=== PATIENT | female | born 1980 | race Caucasian/White ===

== ENCOUNTER 2022-09-18 07:34 | Outpatient (CLI) | payer BC | END 2022-09-18 07:35 | disposition home or self-care (01) | LOC: BICULT 07:34 | PROVIDERS: ATTEND Nurse Practitioner Family | DX: N63.10 Unspecified lump in the right breast, unspecified quadrant (principal) ==

== ENCOUNTER 2025-07-28 05:56 | Day surgery (SDC) | payer BC ==
[2025-07-24 09:03] VITALS: BMI 28.3
[2025-07-28] MEDS ORDERED: Bacitracin Zinc Ointment 30 gm TUBE ONE (06:21)
[2025-07-28] MEDS ORDERED: PROPOFOL 20 ML ONE (06:51)
[2025-07-28] MEDS ORDERED: Rocuronium Bromide 10 MG/ML (10ML VIAL) ONE (06:51)
[2025-07-28] MEDS ORDERED: Ondansetron PF 4 MG/2 ML Vial ONE (06:51)
[2025-07-28] MEDS ORDERED: fentaNYL PF 100 MCG/2 ML SYRINGE ONE (06:51)
[2025-07-28] MEDS ORDERED: Lidocaine 1% PF 5 ML VIAL ONE (06:51)
[2025-07-28] MEDS ORDERED: CEFAZOLIN 2 GM VIAL ONE (06:58)
[2025-07-28] MEDS ORDERED: PHENYLEPHRINE-NS 100 MCG/ML 10 ML SYRINGE ONE (07:21)
[2025-07-28] MEDS ORDERED: Ketorolac Tromethamine 30 MG (1 mL) VIAL ONE (07:47)
[2025-07-28] MEDS ORDERED: HYDROcodone/Acetaminophen 5/325 mg Tablet ONE (09:11)
[2025-07-28] MEDS ORDERED: HYDROcodone/Acetaminophen 5/325 mg Tablet PO PRN ×2 (09:26)
[2025-07-28] MEDS ORDERED: Ondansetron PF 4 MG/2 ML Vial IVP SCH (09:30)
== END 2025-07-28 10:15 | disposition home or self-care (01) ==
LOC: SDC 05:56
PROVIDERS: ATTEND Orthopaedic Surgery Hand Surgery
PROC: 0PBT0ZZ Excision of Right Finger Phalanx, Open Approach (ICD-10-PCS; principal; 2025-07-28)
PROC: 0LB70ZZ Excision of Right Hand Tendon, Open Approach (ICD-10-PCS; principal; 2025-07-28)
DX: M67.441 Ganglion, right hand (principal); I10 Essential (primary) hypertension; Z87.59 Personal history of other complications of pregnancy, childbirth and the puerperium; Z90.49 Acquired absence of other specified parts of digestive tract
CPT/HCPCS: 88304; 88311; A6223; J0665; J1100; J1885; J2250; J2704